=== PATIENT | male | born 1990 | race Caucasian/White ===

== ENCOUNTER 2017-09-24 19:15 | Emergency (ER) | payer BC ==
[~2017-09-24] VITALS: Ht 177.8 cm; Wt 84.5 kg
[2017-09-24] MEDS ORDERED: ketorolac trometh inj. 60 MG/2 ML VIAL IM ONE (21:15)
[2017-09-24 21:47] VITALS: BP 134/78
== END 2017-09-24 21:49 | disposition home or self-care (01) ==
LOC: ER 19:15
DX: R07.9 Chest pain, unspecified (principal); G89.29 Other chronic pain
CPT/HCPCS: 96372; 99284; J1885

== ENCOUNTER 2020-06-16 05:54 | Day surgery (SDC) | payer BC ==
[2020-06-10 15:07] LABS: BASOPHILS % (AUTO) 0.2 % (0-1); EOSINOPHILS # (AUTO) 0.2 X10'3 (0-0.9); EOSINOPHILS % (AUTO) 2.8 % (0-6); LYMPHOCYTES # (AUTO) 1.7 X10'3 (1.1-4.8); LYMPHOCYTES % (AUTO) 22.3 % (21-51); MEAN CORPUSCULAR HEMOGLOBIN 32.8 PG (27.0-31.0); MEAN CORPUSCULAR HGB CONC 34.5 g/dL (33.0-36.5); MEAN CORPUSCULAR VOLUME 95.2 FL (78-98); MEAN PLATELET VOLUME 8.6 FL (7.4-10.4); MONOCYTES # (AUTO) 0.5 X10'3 (0-0.9); MONOCYTES % (AUTO) 6.9 % (2-12); NEUTROPHILS # (AUTO) 5.1 X10'3 (1.8-7.7); NEUTROPHILS % (AUTO) 67.8 % (42-75); PRE OP HEMATOCRIT 41.6 % (42.0-52.0); PRE OP HEMOGLOBIN 14.4 g/dL (14.0-17.9); PRE OP PLATELET COUNT 257 X10'3 (140-440); RED BLOOD COUNT 4.37 X10'6 (4.70-6.10); RED CELL DISTRIBUTION WIDTH 12.1 % (11.5-14.5)
[2020-06-10 15:19] LABS: ALBUMIN 4.1 G/DL (3.4-5.0); ALBUMIN/GLOBULIN RATIO 1.3 (1.1-1.5); ALKALINE PHOSPHATASE 82 IU/L (46-116); BLOOD UREA NITROGEN 12 MG/DL (7-18); BUN/CREATININE RATIO 13.2 (5.4-32.0); CALCIUM 8.9 MG/DL (8.5-10.1); CHLORIDE 106 MMOL/L (99-107); CREATININE 0.91 MG/DL (0.60-1.10); PRE OP ALT 24 U/L (30-65); PRE OP ANION GAP 5 (8-16); PRE OP AST 16 U/L (10-37); PRE OP BILIRUB, TOTAL 0.5 MG/DL (0.0-1.0); PRE OP GLUCOSE 99 MG/DL (70-104); PRE OP POTASSIUM 4.4 MMOL/L (3.4-5.1); PRE OP SODIUM 144 MMOL/L (135-145); TOTAL CARBON DIOXIDE 32.9 MMOL/L (24-32); TOTAL PROTEIN 7.3 G/DL (6.4-8.2); eGFR > 90 ML/MIN
[2020-06-16] VITALS (13 sets, daily range): BP systolic 114–133; BP diastolic 66–88
[~2020-06-16] VITALS: Ht 177.8 cm; Wt 80.0 kg
[~2020-06-16 05:54] MED LIST: NO HOME MEDS; ceFAZolin 2gm in dextrose, iso 50 ML IV ONE; famotidine 20mg tablet PO ONE; ringers solution, lacted 1,000 ML IV SCH
[2020-06-16] MEDS ORDERED: BUPIVAcaine/PF 2.5 mg/ml (0.25%) 30ml vial ONE (07:46)
[2020-06-16] MEDS ORDERED: rocuronium 10mg/ml inj IV ONE ×2 (08:42→08:43)
[2020-06-16] MEDS ORDERED: midazolam 2 mg/2 ml injection ONE (08:42)
[2020-06-16] MEDS ORDERED: fentaNYL /PF 50mcg/ml 5ml ampule ONE (08:42)
[2020-06-16] MEDS ORDERED: LIDOcaine 2% (20mg/ml) 5ml vial ONE (08:42)
[2020-06-16] MEDS ORDERED: propofol inj 20 ML IV ONE (08:42)
[2020-06-16] MEDS ORDERED: glycopyrrolate 0.2mg/ml inj ONE (09:00)
[2020-06-16] MEDS ORDERED: neostigmine methylsulfate 1 MG/ML 10ml vial ONE (09:00)
[2020-06-16] MEDS ORDERED: sevoflurane 250ml liquid IH ONE (09:00)
[2020-06-16] MEDS ORDERED: dexamethasone sod phosphate 4mg/ml inj. ONE (09:19)
[2020-06-16] MEDS ORDERED: ondansetron/PF 4mg/2ml inj ONE (09:19)
[2020-06-16] MEDS ORDERED: ondansetron/PF 4mg/2ml inj IV PRN (09:40)
[2020-06-16] MEDS ORDERED: proCHLORperazine 10 MG/2 ml inj IV PRN (09:40)
[2020-06-16] MEDS ORDERED: morphine 4 MG/ML inj SYRINge IV PRN (09:40)
[2020-06-16] MEDS ORDERED: meperidine/PF 25mg/ml syringe IV PRN ×2 (09:40)
[2020-06-16] MEDS ORDERED: morphine 2 MG/ML inj. syringe IV PRN (09:40)
[2020-06-16] MEDS ORDERED: ringers solution, lacted 1,000 ML IV SCH (09:40)
[2020-06-16] MEDS ORDERED: ketorolac trometh. 30mg/ml inj. ONE (10:31)
[2020-06-16] MEDS ORDERED: acetaminophen 1,000mg/100ml IV 100 ML IV ONE (10:36)
--- NOTE | 2020-06-16 10:45 | NUR ---
ADMITTED TO PACU FROM OR ACCOMPANIED BY ANESTHESIA. INTIAL PHYSICAL ASSESSMENT DONE AND RECORDED. REPORT RECEIVED FROM ANESTHESIA.
[2020-06-16] MEDS: meperidine/PF 25mg/ml syringe IV PRN ×2 (11:05→11:20)
[2020-06-16] MEDS ORDERED: HYDROcodone/acetaminophen 10/325mg tab PO ONE (12:00)
--- NOTE | 2020-06-16 13:40 | NUR ---
DISCHARGE CRITERIA MET, DISCHARGE INSTRUCTIONS GIVEN, DEMONSTRATES VERBAL UNDERSTANDING. DISCHARGED HOME IN GOOD CONDITION.
== END 2020-06-16 12:45 | disposition home or self-care (01) ==
LOC: PAS 05:54
PROVIDERS: ATTEND Surgery
DX: K42.9 Umbilical hernia without obstruction or gangrene (principal); Z30.2 Encounter for sterilization; K21.9 Gastro-esophageal reflux disease without esophagitis; Z20.828 Contact with and (suspected) exposure to other viral communicable diseases; Z98.890 Other specified postprocedural states; Z72.89 Other problems related to lifestyle
CPT/HCPCS: 36415; 49652; 55250; 80053; 82948; 85025; 87635; C1713; C1781; J0131; J1100; J1885; J2001; J2175; J2250; J2270; J2405; J2704; J2710; J3010; J3490; S2900; A4215; A4618; J7120